=== PATIENT | female | born 1935 | race African-American/Black ===

== ENCOUNTER 2025-05-19 22:57 | Inpatient (IN) | payer MEDICARE ==
[~2025-05-19] VITALS: Ht 167.6 cm; Wt 58.1 kg
[2025-05-20] VITALS (9 sets, daily range): BP systolic 121–149; BP diastolic 50–84; PULSE 71–88; RESP 18–20; TEMP 36.1–37; O2SAT 95–100
[2025-05-20 00:28] LABS: BASOPHILS % 0.5 % (0.0-2.0); EOSINOPHILS % 0.3 % (0.0-5.0); HEMATOCRIT. 24.2 % (36.0-48.0); HEMOGLOBIN. 7.8 g/dL (12.0-16.0); LYMPHOCYTES % 12.8 % (20.0-50.0); MEAN PLATELET VOLUME 8.0 fl (7.4-10.4); MONOCYTES % 5.9 % (2.0-8.0); NEUTROPHILS % 80.5 % (40.0-76.0); PLATELET 151 x1000/uL (130-400); RED BLOOD CELL COUNT 2.83 mill/uL (4.2-5.4); RED CELL DISTRIBUTION WIDTH 15.1 % (11.6-14.6)
[2025-05-20 00:30] LABS: INR 1.1
[2025-05-20 00:36] LABS: CREATININE 1.0 mg/dL (0.6-1.0); UREA NITROGEN BLOOD 19 mg/dL (9-23)
[2025-05-20 00:38] LABS: ASPARTATE AMINOTRANSFERASE 23 IU/L (<34); BILIRUBIN DIRECT 0.3 mg/dL (<=3.0); BILIRUBIN TOTAL 0.8 mg/dL (0.1-1.0)
[2025-05-20 00:39] LABS: PROTEIN TOTAL 5.2 g/dL (6.0-8.3)
[2025-05-20 01:01] LABS: TROPONIN I HIGH SENSITIVITY 21 ng/L (3.0-34)
[2025-05-20] MEDS: SODIUM CHLORIDE 0.9% (SEPSIS BOLUS) IV ONE (01:04)
[2025-05-20] MEDS: PIPERACILLIN/TAZO 3.375G/50ML 50 ML IV ONE (01:14)
[2025-05-20] MEDS: IOHEXOL-300 100 ML BOTTLE ONE (01:22)
[2025-05-20] MEDS: VANCOMYCIN 1G PREMIX 200 ML IV ONE (01:35)
[2025-05-20] MEDS ORDERED: KETOROLAC 30MG/ML VIAL IV PRN (01:45)
[2025-05-20] MEDS ORDERED: DEXTROSE 50% WATER 50ML SYRINGE IV PRN (04:30)
[2025-05-20] MEDS ORDERED: ONDANSETRON HCL 4MG/2ML INJ IV PRN (04:30)
[2025-05-20] MEDS ORDERED: MAGNESIUM/ALUMINUM HYDROXIDE/SIMETHICONE 30ML UDC PO PRN (04:30)
[2025-05-20] MEDS ORDERED: DOCUSATE SODIUM 100MG CAPSULE PO PRN (04:30)
[2025-05-20] MEDS ORDERED: GUAIFENESIN 200MG/10ML SUGAR FREE UDC PO PRN (04:30)
[2025-05-20] MEDS ORDERED: ACETAMINOPHEN 1000MG/100ML 100 ML IV PRN (05:30)
[2025-05-20] MEDS: INSULIN LISPRO 100 UNITS/ML SUBCUT SCH (07:40)
[2025-05-20] MEDS: BLOOD SUGAR DIAGNOSTIC STRIP TEST SCH (07:51)
[2025-05-20] MEDS: DEXT 5%/0.9% NACL 1,000 ML IV SCH (08:11)
[2025-05-20] MEDS: CALCIUM GLUCONATE 1GM PREMIX 50 ML IV NR (08:15)
[2025-05-20] MEDS: PIPERACILLIN/TAZO 3.375G/50ML 50 ML IV SCH (08:16)
[2025-05-20] MEDS: FAMOTIDINE 20MG/2ML VIAL IV SCH (08:16)
[2025-05-20] MEDS: AZITHROMYCIN 500 MG TABLET PO SCH (09:00)
[2025-05-20 09:19] LABS: BG BASE EXCESS -2.4 mmol/L (-2.0-3.0); BG CARBOXYHEMOGLOBIN 1.5 % (0.5-1.5); BG DEOXYHEMOGLOBIN 0.6 % (0.0-5.0); BG FLOW(L/min) 3.00 L/min; BG FRACTION INSPIRED OXYGEN 32; BG HCO3 ACT 20.4 mmol/L (21.0-28.0); BG METHEMOGLOBIN 0.0 % (0.5-1.5); BG OXYGEN SATURATION 99.4 % (94.0-98.0); BG OXYHEMOGLOBIN 97.9 % (94.0-98.0); BG PCO2 27.8 mmHg (32.0-45.0); BG PH 7.483 (7.350-7.450); BG PO2 143.0 mmHg (83.0-108.0); BG SAMPLE SITE RIGHT RADIAL; BG TOTAL HEMOGLOBIN 9.1 g/dL (12.0-16.0); BG VENT MODE NASAL CANNULA
[2025-05-20] MEDS: ASPIRIN 81MG TABLET PO SCH (09:30)
[2025-05-20 12:57] LABS: TROPONIN I HIGH SENSITIVITY 14 ng/L (3.0-34)
[2025-05-20 12:58] LABS: LACTATE DEHYDROGENASE 260 IU/L (120-246)
[2025-05-20 13:00] LABS: TRIGLYCERIDE 62.0 mg/dL (0-150)
[2025-05-20 13:01] LABS: LDL CHOLESTEROL 72.0 mg/dL (5-100)
[2025-05-20] MEDS ORDERED: FOLI-43 MT (14:30)
[2025-05-20] MEDS ORDERED: TRAZ-251 MT (14:30)
[2025-05-20] MEDS ORDERED: FINE10TA (14:30)
[2025-05-20] MEDS ORDERED: ALIS300T MT (14:30)
[2025-05-20] MEDS ORDERED: NEBI10TA10 MT (14:30)
[2025-05-20] MEDS ORDERED: TAMS-54 MT (14:30)
[2025-05-20] MEDS ORDERED: ISOS30TA91 MT (14:30)
[2025-05-20] MEDS ORDERED: ASCO500C18 MT (14:30)
[2025-05-20] MEDS: IPRATROPIUM/ALBUTEROL 0.5-3(2.5)MG/3ML NEB HHN SCH (14:33)
[2025-05-20 14:36] LABS: TROPONIN I HIGH SENSITIVITY 13 ng/L (3.0-34)
[2025-05-20 16:37] LABS: FOLIC ACID (FOLATE) SERUM > 20.00 ng/mL (>5.38); VITAMIN B12 SERUM 611 pg/mL (211-911)
[2025-05-20 17:34] LABS: CLARITY URINE CLOUDY (CLEAR); COLOR URINE YELLOW (YELLOW); GLUCOSE URINE NEGATIVE (NEGATIVE); KETONES URINE NEGATIVE (NEGATIVE); LEUKOCYTE ESTERASE URINE 3+ (NEGATIVE); NITRITE URINE NEGATIVE (NEGATIVE); OCCULT BLOOD URINE 2+ (NEGATIVE); PH URINE 6.5 (4.5-8.0); PROTEIN URINE 1+ (NEGATIVE); SPECIFIC GRAVITY URINE 1.027 (1.005-1.030); UROBILINOGEN URINE 0.2 E.U./dL (0.2-1.0)
[2025-05-20 17:35] LABS: *AMPHETAMINES SCREEN URINE NEGATIVE (NEGATIVE); *BARBITURATES SCREEN URINE NEGATIVE (NEGATIVE); *BENZODIAZEPINES SCREEN URINE NEGATIVE (NEGATIVE); *COCAINE SCREEN URINE NEGATIVE (NEGATIVE); CANNABINOID URINE SCREEN NEGATIVE (NEGATIVE); ECSTASY MDMA SCREEN URINE NEGATIVE (NEGATIVE); METHADONE URINE SCREEN NEGATIVE (NEGATIVE); OPIATES URINE SCREEN NEGATIVE (NEGATIVE); PHENCYCLIDINE URINE SCREEN NEGATIVE (NEGATIVE)
[2025-05-20 18:30] LABS: WBC URINE TNTC /hpf (0-2)
[2025-05-20 18:31] LABS: BACTERIA URINE TRACE; MUCUS URINE TRACE /lpf (< = 2+); SQUAMOUS EPITHELIAL CELL URINE 1+ /lpf (RARE/1+)
[2025-05-20] MEDS: ATORVASTATIN CALCIUM 20MG TABLET PO SCH (22:14)
[2025-05-21] VITALS (10 sets, daily range): BP systolic 100–153; BP diastolic 25–75; PULSE 62–89; RESP 17–20; TEMP 36.6–36.9; O2SAT 96–100
[2025-05-21] MEDS: VANCOMYCIN 1000MG/250ML IV SCH (01:24)
[2025-05-21 06:06] LABS: CREATININE 1.0 mg/dL (0.6-1.0); UREA NITROGEN BLOOD 15 mg/dL (9-23)
[2025-05-21 07:02] LABS: BASOPHILS % 0.4 % (0.0-2.0); EOSINOPHILS % 1.4 % (0.0-5.0); HEMATOCRIT. 25.3 % (36.0-48.0); HEMOGLOBIN. 8.2 g/dL (12.0-16.0); LYMPHOCYTES % 16.4 % (20.0-50.0); MEAN PLATELET VOLUME 8.3 fl (7.4-10.4); MONOCYTES % 9.2 % (2.0-8.0); NEUTROPHILS % 72.6 % (40.0-76.0); PLATELET 147 x1000/uL (130-400); RED BLOOD CELL COUNT 2.95 mill/uL (4.2-5.4); RED CELL DISTRIBUTION WIDTH 14.8 % (11.6-14.6)
[2025-05-21] MEDS: VANCOMYCIN 1GM PMX (XELLIA) 200 ML IV SCH (21:34)
[2025-05-22] VITALS (10 sets, daily range): BP systolic 100–171; BP diastolic 49–74; PULSE 71–91; RESP 18–20; TEMP 36.3–37.2; O2SAT 95–99
[2025-05-22] MEDS: CLOPIDOGREL 75MG TABLET PO SCH (16:56)
[2025-05-23] VITALS (9 sets, daily range): BP systolic 123–160; BP diastolic 48–82; PULSE 74–99; RESP 18–20; TEMP 36.1–36.6; O2SAT 96–100
[2025-05-23 07:03] LABS: CREATININE 0.9 mg/dL (0.6-1.0)
[2025-05-23 07:04] LABS: UREA NITROGEN BLOOD 11 mg/dL (9-23)
[2025-05-23 07:05] LABS: BASOPHILS % 0.3 % (0.0-2.0); EOSINOPHILS % 2.6 % (0.0-5.0); HEMATOCRIT. 25.5 % (36.0-48.0); HEMOGLOBIN. 8.3 g/dL (12.0-16.0); LYMPHOCYTES % 12.0 % (20.0-50.0); MEAN PLATELET VOLUME 8.2 fl (7.4-10.4); MONOCYTES % 6.5 % (2.0-8.0); NEUTROPHILS % 78.6 % (40.0-76.0); PLATELET 151 x1000/uL (130-400); RED BLOOD CELL COUNT 2.95 mill/uL (4.2-5.4); RED CELL DISTRIBUTION WIDTH 15.0 % (11.6-14.6)
[2025-05-23] MEDS: POTASSIUM CHLORIDE 20MEQ/PACKET NG NR (08:42)
[2025-05-23] MEDS: NEBIVOLOL HCL 5 MG TABLET NG SCH (08:45)
[2025-05-23] MEDS: IPRATROPIUM/ALBUTEROL 0.5-3(2.5)MG/3ML NEB HHN PRN (09:10)
[2025-05-23 11:43] LABS: PHOSPHORUS 2.4 mg/dL (2.5-4.9)
[2025-05-23] MEDS ORDERED: DEXTROSE 50% WATER 50ML SYRINGE IV PRN (18:45)
[2025-05-23] MEDS: ATORVASTATIN CALCIUM 20MG TABLET NG SCH (21:02)
[2025-05-23] MEDS: VANCOMYCIN 750MG PREMIX 150 ML IV SCH (21:37)
[2025-05-24] VITALS (8 sets, daily range): BP systolic 119–155; BP diastolic 50–87; PULSE 70–93; RESP 18–20; TEMP 36.1–36.7; O2SAT 97–100
[2025-05-24] MEDS: LEVOFLOXACIN 500MG TABLET PO NR (12:15)
[2025-05-25] VITALS (8 sets, daily range): BP systolic 129–161; BP diastolic 54–73; PULSE 71–82; RESP 16–19; TEMP 36.1–36.8; O2SAT 96–100
[2025-05-25 07:51] LABS: PLATELET 179 x1000/uL (130-400); RED BLOOD CELL COUNT 3.40 mill/uL (4.2-5.4); RED CELL DISTRIBUTION WIDTH 15.1 % (11.6-14.6)
[2025-05-25 08:18] LABS: CREATININE 0.7 mg/dL (0.6-1.0)
[2025-05-25 08:19] LABS: UREA NITROGEN BLOOD 13 mg/dL (9-23)
[2025-05-25] MEDS: LEVOFLOXACIN 250MG TABLET PO SCH (10:27)
[2025-05-25] MEDS: CLONIDINE 0.1MG TABLET PO PRN (10:28)
[2025-05-26] VITALS (7 sets, daily range): BP systolic 118–162; BP diastolic 53–72; PULSE 71–80; RESP 18–20; TEMP 36.1–36.8; O2SAT 95–100
[2025-05-26 08:21] LABS: BASOPHILS % 0.5 % (0.0-2.0); EOSINOPHILS % 5.7 % (0.0-5.0); HEMATOCRIT. 24.7 % (36.0-48.0); HEMOGLOBIN. 8.1 g/dL (12.0-16.0); LYMPHOCYTES % 17.4 % (20.0-50.0); MEAN PLATELET VOLUME 7.8 fl (7.4-10.4); MONOCYTES % 7.9 % (2.0-8.0); NEUTROPHILS % 68.5 % (40.0-76.0); PLATELET 167 x1000/uL (130-400); RED BLOOD CELL COUNT 2.92 mill/uL (4.2-5.4); RED CELL DISTRIBUTION WIDTH 15.0 % (11.6-14.6)
[2025-05-26 08:36] LABS: CREATININE 0.7 mg/dL (0.6-1.0); UREA NITROGEN BLOOD 12 mg/dL (9-23)
[2025-05-26] MEDS: HYDRALAZINE 20MG/ML VIAL IV PRN (08:45)
[2025-05-27] VITALS: BP 131/74; PULSE 79; RESP 19; TEMP 36.6; O2SAT 98
[2025-05-27 04:00] VITALS: BP 125/76; PULSE 80; RESP 18; TEMP 36.3; O2SAT 98
[2025-05-27 06:49] LABS: CREATININE 0.8 mg/dL (0.6-1.0); UREA NITROGEN BLOOD 11 mg/dL (9-23)
[2025-05-27 06:54] LABS: BASOPHILS % 0.5 % (0.0-2.0); EOSINOPHILS % 3.7 % (0.0-5.0); HEMATOCRIT. 24.6 % (36.0-48.0); HEMOGLOBIN. 7.9 g/dL (12.0-16.0); LYMPHOCYTES % 17.7 % (20.0-50.0); MEAN PLATELET VOLUME 8.0 fl (7.4-10.4); MONOCYTES % 8.3 % (2.0-8.0); NEUTROPHILS % 69.8 % (40.0-76.0); PLATELET 171 x1000/uL (130-400); RED BLOOD CELL COUNT 2.89 mill/uL (4.2-5.4); RED CELL DISTRIBUTION WIDTH 15.4 % (11.6-14.6)
[2025-05-27 08:00] VITALS: BP 132/76; PULSE 76; RESP 20; TEMP 36.4; O2SAT 98
[2025-05-27] MEDS: FERROUS SULFATE 325MG TABLET PO SCH (09:14)
[2025-05-27 12:00] VITALS: BP 123/66; PULSE 78; RESP 20; TEMP 36.1; O2SAT 98
[2025-05-27 16:00] VITALS: BP 135/62; PULSE 71; RESP 18; TEMP 36.8; O2SAT 95
[2025-05-27] MEDS ORDERED: HYDRALAZINE 10 MG in SODIUM CHLORIDE 0.9% 49.5 ML IV PRN (17:15)
[2025-05-27 20:00] VITALS: BP 113/54; PULSE 74; RESP 18; TEMP 36.4; O2SAT 100
[2025-05-28] VITALS: BP 105/43; PULSE 74; RESP 18; TEMP 36.1; O2SAT 100
[2025-05-28 04:00] VITALS: BP 128/77; PULSE 72; RESP 18; TEMP 36.5; O2SAT 99
[2025-05-28 07:17] LABS: BASOPHILS % 0.6 % (0.0-2.0); EOSINOPHILS % 3.8 % (0.0-5.0); HEMATOCRIT. 23.7 % (36.0-48.0); HEMOGLOBIN. 7.7 g/dL (12.0-16.0); LYMPHOCYTES % 22.5 % (20.0-50.0); MEAN PLATELET VOLUME 8.1 fl (7.4-10.4); MONOCYTES % 7.1 % (2.0-8.0); NEUTROPHILS % 66.0 % (40.0-76.0); PLATELET 166 x1000/uL (130-400); RED BLOOD CELL COUNT 2.79 mill/uL (4.2-5.4); RED CELL DISTRIBUTION WIDTH 15.0 % (11.6-14.6)
[2025-05-28 07:37] LABS: CREATININE 0.8 mg/dL (0.6-1.0)
[2025-05-28 07:38] LABS: UREA NITROGEN BLOOD 14 mg/dL (9-23)
[2025-05-28 08:00] VITALS: BP 153/49; PULSE 72; RESP 20; TEMP 36.7; O2SAT 100
[2025-05-28 12:00] VITALS: BP 138/53; PULSE 71; RESP 20; TEMP 36.4; O2SAT 100
[2025-05-28] MEDS ORDERED: LEVO-65 MT (14:07)
[2025-05-28] MEDS ORDERED: FAMO40TA7 MT (14:07)
[2025-05-28] MEDS ORDERED: FERR325T6 MT (14:07)
[2025-05-28] MEDS ORDERED: CLOP-31 MT (14:07)
[2025-05-28] MEDS ORDERED: ASPI-1497 MT (14:07)
[2025-05-28] MEDS ORDERED: ATOR40TA70 MT (14:07)
[2025-05-28 16:00] VITALS: BP 143/57; PULSE 80; RESP 20; TEMP 36.8; O2SAT 100
[2025-05-28 17:23] VITALS: BP 143/57; PULSE 80; RESP 20; TEMP 98.2
== END 2025-05-28 20:15 | disposition home health service (06) | DRG 871 ==
LOC: ER 22:57 → 8WST 05-20 00:52 → EDBEDREQ 05-20 00:55 → EDBEDREQTM 05-20 00:55 → EDBEDREQDT 05-20 00:55 → ENRESERV 05-20 01:27 → 8EST 05-27 16:45
PROVIDERS: ADMIT Hospitalist; ATTEND Hospitalist
DX: A41.9 Sepsis, unspecified organism (principal); G93.41 Metabolic encephalopathy; L89.153 Pressure ulcer of sacral region, stage 3; I63.541 Cerebral infarction due to unspecified occlusion or stenosis of right cerebellar artery; J18.9 Pneumonia, unspecified organism; R29.717 NIHSS score 17; E83.51 Hypocalcemia; R13.12 Dysphagia, oropharyngeal phase; J44.0 Chronic obstructive pulmonary disease with (acute) lower respiratory infection; N39.0 Urinary tract infection, site not specified; B96.89 Other specified bacterial agents as the cause of diseases classified elsewhere; Z79.02 Long term (current) use of antithrombotics/antiplatelets; D64.9 Anemia, unspecified; I10 Essential (primary) hypertension; E04.9 Nontoxic goiter, unspecified; F03.90 Unspecified dementia, unspecified severity, without behavioral disturbance, psychotic disturbance, mood disturbance, and anxiety; E87.6 Hypokalemia; E78.5 Hyperlipidemia, unspecified; K21.9 Gastro-esophageal reflux disease without esophagitis; R09.02 Hypoxemia; Z74.01 Bed confinement status; Z79.82 Long term (current) use of aspirin; Z88.2 Allergy status to sulfonamides; Z90.710 Acquired absence of both cervix and uterus; Z91.81 History of falling
CPT/HCPCS: 36415; 36600; 70496; 70498; 70551; 71045; 71250; 74176; 80048; 80061; 80076; 80202; 80305; 80320; 81003; 82140; 82375; 82607; 82728; 82746; 82805; 82962; 83036; 83540; 83550; 83605; 83615; 83735; 83880; 84100; 84145; 84443; 84484; 85025; 85027; 85044; 87077; 87186; 92610; 93005; 93306; 93970; 94070; 94640; 94664; 97162; 97166; 99291; A6449; J0360; J0612; J1308; J1815; J2543; J3373; J7030; J7042; Q9967; G0480